=== PATIENT | female | born 1960 | race Caucasian/White ===

== ENCOUNTER 2022-01-24 19:08 | Emergency (ER) | payer OTHER ==
[2022-01-24 19:14] VITALS: RESP 18
[2022-01-24] MEDS ORDERED: HYDROcodone/APAP 5-325MG 1 EACH TAB PO STA (19:26)
--- NOTE | 2022-01-24 19:37 | ED ---
Upper Extremity HPI - General Chief Complaint: Extremity Injury, Upper Stated Complaint: Fall/wrist and leg injury Time Seen by Provider: 01/24/22 19:21 Source: patient Mode of arrival: wheelchair Limitations: no limitations - History of Present Illness Initial Comments: This is a pleasant 61-year-old female who tripped over an uneven piece of cement and landed on an outstretched right hand. Patient complaining of sharp pain to the distal aspect of her right radius area. No elbow pain. No pain in the hands. No paresthesias. Patient also fell onto her right knee and sustain some bruising. However, she is able to ambulate with only minimal pain to the anterior knee. No distal or proximal injuries. Patient did sustain a very superficial abrasion to the posterior aspect of the right elbow which only involves the epidermis. No tenderness. Full range of motion. No headache, no fever or chills, no changes in vision or hearing, no sore throat or difficulty with speech, no neck pain, no chest pain or shortness of breath, no abdominal pain, no nausea or vomiting, no changes in urination or bowel movements, no numbness or tingling, no extremity pain, no skin rashes or lesions. MD Complaint: Injury to:: right, wrist Other Extremity Injury: Wrist: Right (Pain to distal right radius area) Other Injuries: RLE (Right knee injury/bruising, patient able to ambulate) Handedness: right Place: outdoors Improves With: rest Worsens With: movement of extremity Context: fall - Related Data Home Medications Medication Instructions Recorded Confirmed atenoloL [Tenormin] 50 mg PO DAILY 01/13/17 10/25/18 Iron Polysaccharide Complex 150 mg PO DAILY 05/01/17 10/25/18 [Ferrex 150] Cyanocobalamin [Vitamin B-12] 500 mcg PO DAILY 10/18/18 10/25/18 Previous Rx's Medication Instructions Recorded Acetaminophen-Codeine 300-30mg 1 each PO Q4H PRN #18 tablet 01/24/22 [Tylenol w/codeine #3] Docusate [Colace] 100 mg PO DAILY PRN #30 capsule 01/24/22 Allergies Allergy/AdvReac Type Severity Reaction Status Date / Time tetanus immune globulin AdvReac Swelling Verified 01/24/22 19:14 Review of Systems ROS Statement: Those systems with pertinent positive or pertinent negative responses have been documented in the HPI. ROS Other: All systems not noted in ROS Statement are negative. Past Medical History Past Medical History: Blood Disorder, Hypertension Additional Past Medical History / Comment(s): anemia History of Any Multi-Drug Resistant Organisms: None Reported Past Surgical History: Hernia Repair, Orthopedic Surgery Additional Past Surgical History / Comment(s): Right ankle surgery Past Anesthesia/Blood Transfusion Reactions: No Reported Reaction Past Psychological History: No Psychological Hx Reported Smoking Status: Never smoker Past Alcohol Use History: Occasional Past Drug Use History: None Reported General Exam Limitations: no limitations General appearance: alert, in no apparent distress Head exam: Present: atraumatic, normocephalic, normal inspection Eye exam: Present: normal appearance, PERRL, EOMI. Absent: scleral icterus, conjunctival injection, periorbital swelling ENT exam: Present: normal exam, mucous membranes moist Neck exam: Present: normal inspection. Absent: tenderness, meningismus, lymphadenopathy Respiratory exam: Present: normal lung sounds bilaterally. Absent: respiratory distress, wheezes, rales, rhonchi, stridor, chest wall tenderness, accessory muscle use, decreased breath sounds, prolonged expiratory Cardiovascular Exam: Present: regular rate, normal rhythm, normal heart sounds. Absent: systolic murmur, diastolic murmur, rubs, gallop, clicks GI/Abdominal exam: Present: soft, normal bowel sounds. Absent: distended, tenderness, guarding, rebound, rigid Extremities exam: Present: tenderness (Patient has tenderness at distal aspect of the right radius as well as anterior aspect of the right knee.), normal capillary refill, other (Range of motion limited by pain with regards to the right wrist. Full range of motion the right knee. No proximal or distal injuries. No break in skin integrity.). Absent: normal inspection (Distal neurovascular status intact. Pulses 2+ out of 4. Capillary refill less than 2 seconds.), pedal edema, joint swelling, calf tenderness Back exam: Present: normal inspection Neurological exam: Present: alert, oriented X3, CN II-XII intact, normal gait. Absent: altered, motor sensory deficit, reflexes normal Psychiatric exam: Present: normal affect, normal mood Skin exam: Present: warm, dry, intact, normal color. Absent: rash, cyanosis, diaphoretic, erythema, urticaria, vesicles Course Vital Signs 01/24/22 01/24/22 19:12 21:29 Temperature 98 F 97.7 F Pulse Rate 91 75 Respiratory 18 18 Rate Blood Pressure 155/92 151/71 O2 Sat by Pulse 97 95 Oximetry - Reevaluation(s) Reevaluation #1: 01/24/22 21:51 Medical record is reviewed Symptoms are improved here in the emergency department Patient is informed of results and questions answered Patient in no distress Patient neurovascular intact Procedures - Orthopedic Fracture Reduction Fracture #1 Consent Obtained: verbal consent Side: right Fracture Reduction Location: radius (Distal radius) Analgesia: hematoma block (5 mL of 0.5% Marcaine without epinephrine, 22-gauge needle) Technique: direct manipulation, finger traps Post Reduction X-rays Demonstrate: acceptable reduction Post-Reduction Neuro Exam: intact Post-Reduction Vascular Exam: intact Splint Applied: Yes Patient Tolerated Procedure: well - Orthopedic Splinting/Casting Injury #1 Side: right Upper Extremity Injury Location: long arm Upper Extremity Immobilizer: sugar tong splint, Shayne wrap, fiberglass cast (Hematoma block was employed using 5 mL of 0.5% Marcaine without epinephrine. Patient had adequate anesthesia. Finger traps were used for traction.) Medical Decision Making - Medical Decision Making Isolated orthopedic injuries to the distal right radius area at the wrist as well as anterior aspect of the right knee. Neurovascular intact. Patient referred to orthopedics. Patient had adequate reduction with good neurovascular status post treatment. Tylenol with Codeine for pain control. Elevation, conservative measures discussed. She is to call orthopedics at 8 AM Thursday morning. Patient understands this treatment plan. Patient also here with a family member corroborates. Patient was told to return to the ER for any signs or symptoms worsen. Told to return immediately if any other problems arise. All questions answered. Treatment plan discussed. Patient in agreement Every effort has been made to ensure accuracy of this dictation. However, due to the limitations of electronic medical records and dictation devices, errors in charting still occur. The case was discussed in detail with ED attending physician. Presentation, findings, treatment plan discussed in detail. Lead Web Developer, Dr. Ivan Disposition Clinical Impression: Closed traumatic displaced fracture of distal end of right radius, Contusion of right knee, initial encounter Disposition: HOME SELF-CARE Condition: Good Instructions (If sedation given, give patient instructions): Wrist Fracture in Adults (ED), How to Use a Sling (ED), Splint Care (ED), Contusion in Adults (ED) Additional Instructions: Elevate the right arm when possible. Wear the sling when up and about. HEENT the splint on until orthopedic follow-up. Apply ice 20 minutes on and off. The neck at the splinting material wet. Call at 8 AM Thursday morning to the orthopedic physician's office. Take the f irst available appointment with any of the orthopedic physicians. Return to the ER immediately if any symptoms worsen, new symptoms arise, or any other problems develop. Prescriptions: Docusate [Colace] 100 mg PO DAILY PRN #30 capsule PRN Reason: Constipation Acetaminophen-Codeine 300-30mg [Tylenol w/codeine #3] 1 each PO Q4H PRN #18 tablet PRN Reason: Pain Is patient prescribed a controlled substance at d/c from ED?: Yes When asked, does pt state using other controlled substances?: No If prescribed controlled substance>3 days was MAPS reviewed?: Prescribed <3 Days If Rx opioid, was Start Talking consent form obtained?: Yes Referrals: Melody Gutierrez DO [Doctor of Osteopathic Medicine] - 01/27/22 8:00 am Time of Disposition: 21:54
[2022-01-24] MEDS ORDERED: BUPIVACAINE (PF) 0.5% 30 ML VIAL SQ STA (20:05)
[2022-01-24] MEDS ORDERED: LIDOCAINE 1% INJ 10MG/ML (5 ML VIAL-PF) SQ ONE (20:05)
--- NOTE | 2022-01-24 20:08 | XR ---
EXAMINATION TYPE: XR wrist complete RT DATE OF EXAM: 01/24/2022 8:00 PM INDICATION: Patient age:Female; 61 years old; Reason for study: Right wrist pain/injury; COMPARISON: None TECHNIQUE: 3 views of the right wrist. FINDINGS: Distal right radius fracture with angulation posteriorly apex anteriorly. No definitive int ra-articular extension into the wrist. There are suspected extension into the distal radioulnar joint . There is soft tissue swelling. IMPRESSION: Distal right radius fracture with posterior angulation and without definitive intra-articular extensi on into the wrist however there is extension into the distal radioulnar joint.,
--- NOTE | 2022-01-24 20:13 | XR ---
EXAMINATION TYPE: XR knee 4V RT DATE OF EXAM: 01/24/2022 8:00 PM INDICATION: Patient age:Female; 61 years old; Reason for study: Right knee pain/injury; COMPARISON: None. TECHNIQUE: The Right knee(s) was examined in AP lateral and oblique projections. FINDINGS: There is end-stage osteoarthrosis of the patellofemoral joint most pronounced in the later al patellar femoral joint. There is mild tibial plateau osteophyte. There are calcifications projecti ng over the the right lateral distal thigh soft tissues. There is nonaggressive appearing scalloping of the distal femur cortex anteriorly noted on lateral view. IMPRESSION: 1. No acute osseous pathology. 2. Severe patellofemoral osteoarthritic changes. 3. Calcifications projecting over the soft tissues of the lateral aspect of the distal thigh soft tis sues which may represent free bodies within the right joint capsule. 4. Nonaggressive appearing Scalloping of the cortex and lateral view of the distal femur.
[2022-01-24 21:31] VITALS: BP 151/71; PULSE 75; TEMP 97.7
--- NOTE | 2022-01-24 21:40 | XR ---
EXAMINATION TYPE: XR wrist limited RT DATE OF EXAM: 01/24/2022 9:30 PM INDICATION: Patient age:Female; 61 years old; Reason for study: Postreduction COMPARISON: Same day wrist radiograph. TECHNIQUE: 3 views of the right wrist. FINDINGS: Improved alignment of the distal right radius fracture with decrease in angulation posterio rly. There remains shortening of the fracture. There is intra-articular extension seen along the late ral radius and into the distal radioulnar joint. There is soft tissue swelling. IMPRESSION: Post reduction with improved alignment, there is intra-articular extension into the wrist and distal radioulnar joint. There is shortening of the radius.
[2022-01-24] MEDS ORDERED: ACET/COD 300 MG/30 MG STARTER PACK 6 TAB BTL PO STA (21:48)
== END 2022-01-24 22:15 | disposition home or self-care (01) ==
LOC: EC 19:08
DX: M25.531 Pain in right wrist (principal); W01.0XXA Fall on same level from slipping, tripping and stumbling without subsequent striking against object, initial encounter; Z88.7 Allergy status to serum and vaccine; I10 Essential (primary) hypertension
CPT/HCPCS: 25605; 99284; 73100; 73110; 73564; J2001

== ENCOUNTER → 2022-01-28 | Outpatient (CLI) | payer OTHER ==
[2022-01-28 14:48] LABS: Basophils # (A) 0.05 X 10*3/uL (0.00-0.10); Basophils % (A) 0.6 %; Eosinophils # (A) 0.09 X 10*3/uL (0.04-0.35); Eosinophils % (A) 1.1 %; HCT 42.8 % (37.2-46.3); HGB 12.6 g/dL (12.0-15.0); Immature Grans, Automated 0.5 %; Lymphocytes % (A) 14.7 %; MCH 27.6 pg (27.0-32.0); MCHC 29.4 g/dL (32.0-37.0); MCV 93.7 fL (80.0-97.0); Mean Platelet Volume 11.2 fL (9.5-12.2); Monocytes # (A) 0.81 X 10*3/uL (0.20-1.00); Monocytes % (A) 9.9 %; NRBC Per 100 WBC 0 /100 WBCS (0.0-0.0); Neutrophils # (A) 5.99 X 10*3/uL (1.80-7.70); Neutrophils % (A) 73.2 %; Platelet Count 292 X 10*3/uL (140-440); RBC 4.57 X 10*6/uL (4.10-5.20); RDW 13.5 % (11.5-14.5); WBC 8.18 X 10*3/uL (4.50-10.00)
[2022-01-28 15:02] LABS: Anion Gap 9.6 mmol/L (10.00-18.00); Carbon Dioxide 30.4 mmol/L (20.0-27.5); Potassium 4.7 mmol/L (3.5-5.5)
== END | disposition home or self-care (01) ==
LOC: LABPAT 10:49
PROVIDERS: ATTEND Orthopaedic Surgery Hand Surgery
DX: Z01.812 Encounter for preprocedural laboratory examination (principal); S52.501A Unspecified fracture of the lower end of right radius, initial encounter for closed fracture; X58.XXXA Exposure to other specified factors, initial encounter
CPT/HCPCS: 80051; 85025; 93005

== ENCOUNTER 2022-02-05 11:09 | Day surgery (SDC) | payer OTHER ==
[2022-01-31 13:43] VITALS: BMI 41.9
--- NOTE | 2022-02-04 08:29 | P.HPOR ---
History of Present Illness H&P Date: 02/04/22 Chief Complaint: Right distal radius fracture Subjective: This is a 61 year old female that presents today for initial evaluation regarding a right wrist injury that occurred on when she tripped on concrete and fell at home on her right arm. She was seen in the ER where closed reduction and immobilization was performed. She states she does not remember but she may have injured this wrist before but it did not require surgery. She denies any paresthesias. She also is having some right knee swelling but with minimal pain. She has a known history of severe knee arthritis but noticed increased swelling and bruising around the knee since the fall but has been able to ambulate without difficulty. Physical Examination: RUE: AIN/PIN/Radial/Ulnar/Median motor intact. Radial/Ulnar/Median SILT. 2+/4 Radial/Ulnar pulses palpated. 5/5 APB, 5/5 FDI. EPL intact. Bruising/swelling present around wrist. RLE: EHL/FHL/PF/DF 5/5. Able to straight leg raise against resistance. 2+/4 DP/PT. NTTP over patella. Knee stable to varus/valgus stress. Knee F/E 110/0 without pain. Imaging: X-Rays of the right wrist demonstrate a displaced distal radius fracture with 45 degrees of dorsal angulation. Fracture extension into the distal radial ulnar joint. X-Rays of the right knee demonstrate severe patellofemoral arthritis. No acute fracture seen. Likely calcific loose bodies located in knee joint. Impression: 1.) Right intra-articular distal radius fracture, displaced. 2.) Right knee contusion, severe patellofemoral OA. Plan: Diagnosis and treatment options were discussed with the patient. Due to the amount of residual displacement on imaging today I recommend surgical intervention. Risks and benefits of surgery including bleeding, infection, damage to surrounding tissue, need for further surgery, residual numbness were discussed and the patient wished to go forward with surgery. She will be scheduled for a right distal radius ORIF in the near future. I anticipate 4 to 6 weeks off of work after surgery. New removable wrist splint is placed and she will be scheduled for surgery in the near future. -Gregory Flores DO Orthopedic Hand/Upper Extremity Surgeon Past Medical History Past Medical History: Blood Disorder, Hypertension, Osteoarthritis (OA) Additional Past Medical History / Comment(s): anemia- follows with Dr Yanez, hx fall 01/24/22 with abrasion on elbow & right wrist fx -wearing brace., hx covid november 2020. History of Any Multi-Drug Resistant Organisms: None Reported Past Surgical History: Adenoidectomy, Hernia Repair, Orthopedic Surgery, Tonsillectomy Additional Past Surgical History / Comment(s): Right ankle surgery Past Anesthesia/Blood Transfusion Reactions: No Reported Reaction Past Psychological History: No Psychological Hx Reported Smoking Status: Never smoker Past Alcohol Use History: Occasional Past Drug Use History: None Reported - Past Family History Father Family Medical History: Cancer Additional Family Medical History / Comment(s): lung cancer Mother Additional Family Medical History / Comment(s): breast cancer Medications and Allergies Home Medications Medication Instructions Recorded Confirmed Type atenoloL [Tenormin] 50 mg PO HS 01/13/17 01/31/22 History Iron Polysaccharide Complex 150 mg PO DAILY 05/01/17 01/31/22 History [Ferrex 150] Acetaminophen-Codeine 300-30mg 1 each PO Q4H PRN #18 tablet 01/24/22 01/31/22 Rx [Tylenol w/codeine #3] Docusate [Colace] 100 mg PO DAILY PRN #30 capsule 01/24/22 01/31/22 Rx Ascorbic Acid [Vitamin C] 1,000 mg PO DAILY 01/31/22 01/31/22 History Cyanocobalamin (Vitamin B-12) 1,000 mcg PO DAILY 01/31/22 01/31/22 History [Vitamin B-12] Zinc 50 mg PO DAILY 01/31/22 01/31/22 History Allergies Allergy/AdvReac Type Severity Reaction Status Date / Time tetanus immune globulin AdvReac Swelling Verified 01/31/22 13:19 Physical Examination Osteopathic Statement: *. No significant issues noted on an osteopathic structural exam other than those noted in the History and Physical/Consult.
[~2022-02-05 11:09] MED LIST: ceFAZolin 3 GM in SODIUM CHLORIDE 0.9% 100 ML IVPB PRN
[2022-02-05 12:08] VITALS: RESP 16; TEMP 98.7
[2022-02-05] MEDS ORDERED: LACTATED RINGERS 1,000 ML IV ONE (12:09)
[2022-02-05] MEDS ORDERED: MIDAZOLAM 2 MG/2 ML VIAL IVP ONE (12:47)
[2022-02-05] MEDS ORDERED: ONDANSETRON 4 MG/2 ML VIAL ONE (12:57)
[2022-02-05] MEDS ORDERED: DEXAMETHASONE SOD PHOSPHATE 4 MG/ML 1 ML VIAL IVP ONE (12:59)
--- NOTE | 2022-02-05 12:59 | P.ANPRN ---
Procedure Note - Anesthesia - Nerve Block Performed Right Supraclavicular Single Time Out Performed: Yes Date of Procedure: 02/05/22 Procedure Start Time: 12:46 Procedure Stop Time: 12:50 Location of Patient: PreOp Indication: Acute Post-Operative Pain, Requested by Surgeon Preparation: Sterile Prep Position: Supine Needle Types: Pajunk Needle Gauge: 21 Ultrasound used to visualize needle placement: Yes Ultrasound used to observe medication spread: Yes Blood Aspirated: No Pain Paresthesia on Injection Noted: No Resistance on Injection: Normal Image Stored and Saved: Yes Events: Uneventful and Well Tolerated (ropi .5% 20cc plus dexamethasone 4mg)
[2022-02-05] MEDS ORDERED: DEXAMETHASONE SOD PHOSPHATE 4 MG/ML 1 ML VIAL ONE (13:25)
[2022-02-05] MEDS ORDERED: PROPOFOL 10 MG/ML 20 ML VIAL IV ONE (13:25)
[2022-02-05] MEDS ORDERED: ROPIVACAINE 5 MG/ML 30 ML VIAL ONE (13:25)
[2022-02-05] MEDS ORDERED: LIDOCAINE 2% INJ 20 MG/ML (2 ML VIAL) ONE (13:25)
[2022-02-05] MEDS ORDERED: MIDAZOLAM 2 MG/2 ML VIAL ONE (13:25)
[2022-02-05] MEDS ORDERED: fentaNYL (PF) 50 MCG/ML 2 ML AMP ONE (13:25)
[2022-02-05] MEDS ORDERED: KETAMINE 10 MG/ML 20 ML VIAL ONE (13:25)
[2022-02-05] MEDS ORDERED: PHENYLEPHRINE-0.9% NACL SYG 1,000 MCG/10 ML SYRINGE ONE (13:25)
[2022-02-05 14:58] VITALS: BP 127/64; PULSE 72
--- NOTE | 2022-02-05 18:49 | P.OP ---
Date of Procedure: 02/05/22 Preoperative Diagnosis: Right intra-articular distal radius fracture, 3 parts. Postoperative Diagnosis: Right intra-articular distal radius fracture, 3 parts. Procedure(s) Performed: Open reduction internal fixation of right intra-articular distal radius f racture, 3 parts. Implants: Jake/Biomet DVR Crosslock volar locking distal radius plate, short/narrow. Surgeon: Gregory Flores Box Chipper #1: Nii Herrera Estimated Blood Loss (ml): 5 Pathology: none sent Condition: stable Disposition: PACU Description of Procedure: This is a 61 year old female who sustained a displaced intra-articular distal radius fracture and presents today for open reduction internal fixation of their right distal radius fracture . Risks and benefits of surgery were discussed with the patient including bleeding, damage to surrounding tissue, infection, need for further surgery as well as risks of anesthesia including pulmonary embolism and even and the patient wished to proceed with surgical intervention. The patients was seen in the pre-operative area by myself. Consent and H&P were completed and updated. The correct extremity was marked in the pre- operative area by myself and all other questions were answered. Operative Narrative: The patient was brought to the operating room by the department of anesthesia. They remained on the portable stretcher and a rolling hand table was brought to the side of the operative extremity. Pre-operative time out was performed indicating the correct patient, procedure and laterality. All in the room agreed. Pre-operative antibiotics were given prior to skin incision. The patient was then drifted off to sleep by the department of anesthesia. A nonsterile tourniquet was then applied to the operative extremity and the right upper extremity was then prepped and draped in normal sterile fashion. The operative extremity was the exsanguinated with an esmarch bandage and the tourniquet was inflated to 250mmHg. A longitudinal incision centered over the FCR tendon was made with a 15-blade scalpel. Blunt dissection was taken down to the FCR tendon sheath using Bovie cautery for meticulous hemostasis. The FCR sheath was opened with tenotomy scissors. The floor of the FCR sheath was then incised with a 15-blade scalpel and the FPL tendon and muscle belly was swept bluntly in an ulnar direction to reveal the pronator quadratus. Pronator quadratus was sharply incised with a 15-blade scalpel along the radial border of the distal radius, coming across transversely parallel to the joint at the level of the watershed line, radial artery was identified and protected. Periosteal elevator was then used to elevate the pronator quadratus off the distal radius from a radial to ulnar fashion. A Arapaho elevator was used to lever the distal piece back into place and free up the fractured fragments. A narrow/short width Jake/biomet crosslock DVR plate was chosen to fit the patients anatomy best. This was placed on the distal radius under direct visualization and the K- wire was placed in the shaft k-wire hole. The fracture was then reduced to the plate distally and a k-wire was placed in the ulnar most k-wire hole in the proximal row. Fluoroscopy was then utilized to confirm correct placement of plate in the radial/ulnar plane and distal k-wire placement was confirmed to be proximal to the subchondral bone on 20 degree elevated lateral view confirming extra- articular screw placement. Rastafarian of radial height, inclination and volar tilt was achieved. The oblong hole was drilled and filled with a cortical screw. The proximal row and radial styloid screw hole was then drilled and filled from ulnar to radial with locking screws. Distal row was then drilled and filled with locking smooth pegs. Attention was then brought to the proximal shaft screws. Proximal crosslocking shaft screws were drilled with a nonlocking screws. The wrist joint was the ranged and full smooth flexion/extension with no crepitus appreciated. Final imaging was taken confirming extra-articular placement of distal screws at DRUJ and radiocarpal joint. The wound was then irrigated. Subcutaneous closure was performed with 3-0 vicryl followed by skin closure with 4-0 nylon suture. Sterile dressing consisting of adaptic, 4x4s, and a volar plaster splint was applied. Tourniquet was let down and the hand had immediate perfusion. The patient was then woken by the department of anesthesia and transferred to PACU in stable condition. The patient was then woken by the department of anesthesia and transferred to PACU in stable condition. Nii DUONG was present for the case and assisted in major portions of the operation and hardware placement. Gregory Flores D.O. Orthopedic Hand/Upper Extremity Surgeon
== END 2022-02-05 15:14 | disposition home or self-care (01) ==
LOC: OR 11:09
PROVIDERS: ATTEND Orthopaedic Surgery Hand Surgery
DX: S52.571A Other intraarticular fracture of lower end of right radius, initial encounter for closed fracture (principal); S80.01XA Contusion of right knee, initial encounter; G89.18 Other acute postprocedural pain; W01.0XXA Fall on same level from slipping, tripping and stumbling without subsequent striking against object, initial encounter; Y92.009 Unspecified place in unspecified non-institutional (private) residence as the place of occurrence of the external cause; M17.11 Unilateral primary osteoarthritis, right knee; I10 Essential (primary) hypertension; D64.9 Anemia, unspecified; Z86.16 Personal history of COVID-19; Z80.3 Family history of malignant neoplasm of breast; Z80.1 Family history of malignant neoplasm of trachea, bronchus and lung; Z79.899 Other long term (current) drug therapy; Z88.7 Allergy status to serum and vaccine; E66.01 Morbid (severe) obesity due to excess calories; Z68.41 Body mass index [BMI] 40.0-44.9, adult
CPT/HCPCS: 64417; 76942; 25609; C1713; J2250; J1100; J0690; J2405; J3010; J2795; J2370; J2704; J2001